=== PATIENT | male | born 1965 ===

== ENCOUNTER → 2021-04-07 | Outpatient (CLI) | payer OTHER ==
--- NOTE | 2021-04-07 17:59 | KCIC ---
Exam Date: 04/07/2021 3:[address] LOWER LEFT EXTREMITY WITHOUT CONTRAST Indication: Reason: Pre op [employer] planning, arthritis to knee / Spl. Instructions: / History: . EXAMINATION: CT OF THE LEFT KNEE WITHOUT CONTRAST ([employer] planning protocol) CLINICAL INDICATION: Severe left knee pain TECHNIQUE: CT scan of the left knee was performed without intravenous contrast. Source data was marylou nstructed into sagittal and coronal planes. Additionally, axial CT images were obtained through the h ip and ankle per [employer] planning protocol. One or more of the following dose reduction techniques were utilized: *Automated exposure control (AEC) *Adjustment of mA and/or kV according to patient size *Use of iterative reconstruction technique *CT scan done according to ALARA, or ALARA/IMAGE GENTLY COMPARISON: None. FINDINGS: Hip: No acute fracture or dislocation. There are mild degenerative changes in the left hip. Alignment is maintained. Soft tissue structures are within normal limits. Knee: No acute fracture or dislocation. There is moderate to severe joint space narrowing lateral compartm ent. Moderate to large osteophytes are seen. There is a moderate popliteal cyst. Soft tissue struc tures are otherwise within normal limits. Ankle: No acute fracture or dislocation. There are mild degenerative changes in the left ankle. Alignment is maintained. Soft tissue structures are within normal limits. IMPRESSION: Advanced osteoarthritis of the left knee as detailed above. Electronically signed by: Abhishek Cano MD (04/07/2021 5:56 PM) [facility]
== END ==
LOC: KCIC CT 15:15
PROVIDERS: ATTEND Orthopaedic Surgery
DX: M17.12 Unilateral primary osteoarthritis, left knee (principal); M71.22 Synovial cyst of popliteal space [Baker], left knee; M25.762 Osteophyte, left knee
CPT/HCPCS: 73700